=== PATIENT | male | born 1990 | race Caucasian/White ===

== ENCOUNTER 2016-06-21 11:45 | Emergency (ER) | payer OTHER ==
[~2016-06-21] VITALS: Ht 180.3 cm; Wt 82.6 kg
[~2016-06-21 11:45] MED LIST: DOXYCYCLINE HY100 MG PO; Duricef PO; Percocet 7.5/325,End PO
[2016-06-21] MEDS ORDERED: MOTRIN600 MG PO (12:19)
[2016-06-21] MEDS ORDERED: FLEXERIL10 MG PO (12:19)
[2016-06-21 12:38] VITALS: BP 141/73
== END 2016-06-21 12:42 | disposition home or self-care (01) ==
LOC: EME 11:45
DX: S06.0X0A Concussion without loss of consciousness, initial encounter (principal); M54.9 Dorsalgia, unspecified; V49.40XA Driver injured in collision with unspecified motor vehicles in traffic accident, initial encounter; F17.200 Nicotine dependence, unspecified, uncomplicated
CPT/HCPCS: 99281; 99284

== ENCOUNTER 2016-09-29 22:40 | Emergency (ER) | payer OTHER ==
[~2016-09-29] VITALS: Ht 210.8 cm; Wt 73.8 kg
[~2016-09-29 22:40] MED LIST changes: +FLEXERIL10 MG PO; +MOTRIN600 MG PO
[2016-09-29 23:07] LABS: HEMATOCRIT 44.5 % (38.0-50.0); MCH 28.8 PG (29.0-34.0); MCHC 34.2 G/DL (30.0-36.0); MCV 84.3 FL (86-99); MEAN PLAT.VOLUME 9.3 uM^3 (9.0-12.4); PLATELET COUNT 372 K/uL (156-360); RBC DIS.WIDTH-CV 12.7 % (11.8-14.6); RBC DIS.WIDTH-SD 38.5 % (39-53); RED BLOOD COUNT 5.28 M/uL (4.00-5.50); WHITE BLOOD COUNT 6.6 K/uL (4.1-10.2)
[2016-09-29 23:17] LABS: CHLORIDE 107 mEq/L (99-109); POTASSIUM 3.5 mEq/L (3.7-5.4); SODIUM 140 mEq/L (136-147)
[2016-09-29 23:19] LABS: GLUCOSE 124 mg/dL (70-99)
[2016-09-29 23:21] LABS: ANION GAP 11 MEQ/L (2-14); TOTAL BILIRUBIN 0.5 mg/dL (0.0-1.0)
[2016-09-29 23:23] LABS: ALKALINE PHOSPHATASE 38 IU/L (3-129); GFR ESTIMATE (CALCULATED) > 59 mL/min/
[2016-09-29 23:24] LABS: UREA NITROGEN (BUN) 6 mg/dL (9-23)
[2016-09-29 23:35] LABS: LIPASE 15 U/L (1.0-51.0)
[2016-09-30] MEDS ORDERED: ZOFRAN ODT4 MG PO (00:06)
[2016-09-30] MEDS ORDERED: CLONIDINE HCL0.1 MG PO (00:06)
[2016-09-30] MEDS ORDERED: TRAZODONE HCL50 MG PO (00:06)
[2016-09-30 00:35] VITALS: BP 115/71
== END 2016-09-30 00:36 | disposition home or self-care (01) ==
LOC: EME 22:40 → RME 22:40
DX: F19.939 Other psychoactive substance use, unspecified with withdrawal, unspecified (principal); R11.0 Nausea; R19.7 Diarrhea, unspecified; F17.200 Nicotine dependence, unspecified, uncomplicated
CPT/HCPCS: 80053; 81003; 83690; 85027; 87493; 99281; 99284

== ENCOUNTER 2017-02-26 03:38 | Emergency (ER) | payer OTHER ==
[~2017-02-26] VITALS: Ht 182.9 cm; Wt 68.8 kg
[~2017-02-26 03:38] MED LIST changes: +CLONIDINE HCL0.1 MG PO; +TRAZODONE HCL50 MG PO; +ZOFRAN ODT4 MG PO
[2017-02-26] MEDS ORDERED: MOTRIN800 MG PO (05:19)
[2017-02-26] MEDS ORDERED: AUGMENTIN875 MG PO (05:19)
[2017-02-26] MEDS ORDERED: PERCOCET 5/31 TABLET PO (05:19)
[2017-02-26 07:51] VITALS: BP 124/86
== END 2017-02-26 07:55 | disposition home or self-care (01) ==
LOC: EME → EDBD 03:38 → EME 07:55
DX: S41.151A Open bite of right upper arm, initial encounter (principal); S51.851A Open bite of right forearm, initial encounter; S51.052A Open bite, left elbow, initial encounter; W54.0XXA Bitten by dog, initial encounter; F19.239 Other psychoactive substance dependence with withdrawal, unspecified; K21.9 Gastro-esophageal reflux disease without esophagitis; J45.909 Unspecified asthma, uncomplicated; F17.200 Nicotine dependence, unspecified, uncomplicated
CPT/HCPCS: 73060; 73080; 73090; 99281; 99285; J2270

== ENCOUNTER 2017-03-04 21:57 | Emergency (ER) | payer OTHER ==
[~2017-03-04] VITALS: Ht 180.3 cm; Wt 71.7 kg
[~2017-03-04 21:57] MED LIST changes: +AUGMENTIN875 MG PO; +MOTRIN800 MG PO; +PERCOCET 5/31 TABLET PO
[2017-03-04 22:08] VITALS: BP 145/90
== END 2017-03-04 22:08 | disposition left against medical advice (07) ==
LOC: EME → EDBD 21:57 → EME 21:57
DX: T40.2X1A Poisoning by other opioids, accidental (unintentional), initial encounter (principal); R41.82 Altered mental status, unspecified; Z53.21 Procedure and treatment not carried out due to patient leaving prior to being seen by health care provider
CPT/HCPCS: 99281; 99283

== ENCOUNTER 2017-09-12 13:21 | Emergency (ER) | payer OTHER ==
[~2017-09-12] VITALS: Ht 177.8 cm; Wt 78.6 kg
[2017-09-12 16:09] VITALS: BP 105/77
== END 2017-09-12 16:00 | disposition home or self-care (01) ==
LOC: EME 13:21
DX: T40.1X1A Poisoning by heroin, accidental (unintentional), initial encounter (principal); K21.9 Gastro-esophageal reflux disease without esophagitis; J45.909 Unspecified asthma, uncomplicated; F17.200 Nicotine dependence, unspecified, uncomplicated; Z88.6 Allergy status to analgesic agent
CPT/HCPCS: 99281; 99284